=== PATIENT | male | born 1995 | race Hispanic/Latino ===

== ENCOUNTER 2021-09-17 19:00 | Emergency (ER) | payer MEDICAID ==
[~2021-09-17] VITALS: Ht 172.7 cm; Wt 76.2 kg
[2021-09-17 19:38] VITALS: BP 135/84
[2021-09-17] MEDS ORDERED: CIPR7.5D OT (20:21)
[2021-09-17] MEDS ORDERED: IBUP-2070 PO (20:21)
[2021-09-17] MEDS ORDERED: IBUPROFEN 600 MG TABLET PO ONE (20:30)
[2021-09-17] MEDS ORDERED: CIPROFLOXACIN HCL 0.2%/HYDROCORT 1% 10 ML OTIC SUSP OTIC SCH (20:30)
== END 2021-09-17 20:36 | disposition home or self-care (01) ==
LOC: EDH 19:00
DX: H60.93 Unspecified otitis externa, bilateral (principal); Z20.822 Contact with and (suspected) exposure to COVID-19; E11.9 Type 2 diabetes mellitus without complications; I10 Essential (primary) hypertension
CPT/HCPCS: 99283; 87635; 87804 ×2; C9803

== ENCOUNTER 2022-06-15 19:40 | Emergency (ER) | payer MEDICAID ==
[~2022-06-15] VITALS: Ht 172.7 cm; Wt 118.4 kg
[~2022-06-15 19:40] MED LIST: CIPR7.5D OT; IBUP-2070 PO
[2022-06-15 19:44] VITALS: BP 135/87
[2022-06-15] MEDS ORDERED: AMOX1TAB16 PO (20:45)
[2022-06-15] MEDS ORDERED: IBUP-1493 PO (20:45)
== END 2022-06-15 20:56 | disposition home or self-care (01) ==
LOC: EDH 19:40
DX: L03.031 Cellulitis of right toe (principal); E11.9 Type 2 diabetes mellitus without complications; Z79.1 Long term (current) use of non-steroidal anti-inflammatories (NSAID)

== ENCOUNTER 2023-09-28 04:13 | Emergency (ER) | payer MEDICAID ==
[~2023-09-28] VITALS: Ht 172.7 cm; Wt 109.8 kg
[~2023-09-28 04:13] MED LIST changes: +AMOX1TAB16 PO; +IBUP-1493 PO
[2023-09-28 04:15] VITALS: BP 121/69; PULSE 100; RESP 18
[2023-09-28] MEDS: LIDOCAINE HCL-MPF 2% 5ML VIAL INJ SCH (04:30)
[2023-09-28] MEDS ORDERED: CIPR7.5D7 OT (05:25)
== END 2023-09-28 05:31 | disposition home or self-care (01) ==
LOC: EDH 04:13
DX: T16.1XXA Foreign body in right ear, initial encounter (principal); E11.9 Type 2 diabetes mellitus without complications; I10 Essential (primary) hypertension; Z79.899 Other long term (current) drug therapy; W44.9XXA Unspecified foreign body entering into or through a natural orifice, initial encounter; Y93.89 Activity, other specified; Y92.89 Other specified places as the place of occurrence of the external cause; Y99.8 Other external cause status
CPT/HCPCS: 99283; J3490